=== PATIENT | male | born 1980 | race Caucasian/White ===

== ENCOUNTER → 2018-02-20 12:15 | Outpatient (CLI) | payer OTHER, SELFPAY ==
--- NOTE | 2018-02-20 12:31 | XR_ITS ---
XR knee LT 3V HISTORY: Pain following injury ITS.REASON: TRAUMA TO LEFT KNEE,SOFT TISSUE INJURY ORDERING PHYSICIAN: Al Gray MD PATIENT AGE: 37 years FINDINGS: No acute fracture or dislocation. Mild osteoarthritic change of the medial lateral compartment. IMPRESSION: Osteoarthritis, no acute finding
== END ==
PROVIDERS: PCP Emergency Medicine; Visit Provider Emergency Medicine
DX: M25.562 Pain in left knee (principal); S89.82XA Other specified injuries of left lower leg, initial encounter
CPT/HCPCS: 73562

== ENCOUNTER → 2018-03-03 07:57 | Outpatient (CLI) | payer OTHER, SELFPAY ==
--- NOTE | 2018-03-03 08:01 | MR_ITS ---
MR knee LT wo con HISTORY: Left lateral knee pain with popping ITS.REASON: TEAR LATERAL AND MEDIAL MENISCUS ORDERING PHYSICIAN: Al Gray MD PATIENT AGE: 37 years COMPARISON: 02/20/2018 TECHNIQUE: Standard multiplanar multiecho sequences are performed without contrast. FINDINGS: The cruciate ligaments are intact. The collateral ligaments, patellar tendon, quadriceps tendon have an unremarkable appearance. Complex tear involves the posterior horn of the medial meniscus having both longitudinal and horizontal component. Meniscal fragments are nondisplaced. Lateral meniscus has an unremarkable appearance. There is some nonspecific increased T2 signal involving the medial aspect of the lateral femoral condyle as well as the posterior aspect of lateral tibial plateau consistent with areas of bone bruising. The patellar cartilage is well preserved. There is a small knee joint effusion. IMPRESSION: 1. Nondisplaced complex tear involves posterior horn of the medial meniscus 2. Bone bruise of the medial lateral condyle and lateral tibial plateau with small knee joint effusion
== END ==
PROVIDERS: PCP Emergency Medicine; Visit Provider Emergency Medicine
DX: S83.282A Other tear of lateral meniscus, current injury, left knee, initial encounter (principal); S83.242A Other tear of medial meniscus, current injury, left knee, initial encounter; M25.562 Pain in left knee
CPT/HCPCS: 73721